=== PATIENT | male | born 1990 | race Caucasian/White ===

== ENCOUNTER 2018-09-25 01:17 | Inpatient (IN) | payer OTHER ==
[~2018-09-25] VITALS: Ht 170.2 cm; Wt 74.8 kg
[2018-09-25 01:30] VITALS: BP_SYST 156
[2018-09-25] MEDS ORDERED: NACL 0.9% 1,000 ML IV ONE (01:31)
[2018-09-25] MEDS ORDERED: FAMOTIDINE PF 20 MG/2 ML VIAL IVP ONE (01:45)
[2018-09-25] MEDS ORDERED: MORPHINE 4 MG/ML INJ. SYRINGE IVP ONE (01:45)
[2018-09-25] MEDS ORDERED: ONDANSETRON HCL 4 MG/2 ML VIAL IVP ONE ×2 (01:45→03:15)
[2018-09-25 01:54] LABS: HEMATOCRIT 46.5 % (36-54); HEMOGLOBIN 16.1 g/dL (14.0-18.0); MEAN CORPUSCULAR HEMOGLOBIN 30 pg (27-31); MEAN CORPUSCULAR HGB CONC 35 % (32-36); MEAN CORPUSCULAR VOLUME 87 fL (79.0-98.0); RED BLOOD CELL COUNT(AUTO) 5.33 MIL/uL (4.2-6.2); RED CELL DISTRIBUTION WIDTH 14.2 % (9.0-15.0); WHITE BLOOD COUNT (AUTO) 9.6 K/uL (4.8-10.8)
[2018-09-25 01:55] LABS: BASOPHILS # (AUTO) 0.1 K/uL (0.0-0.2); BASOPHILS % (AUTO) 1.1 % (0.0-2.0); EOSINOPHILS # (AUTO) 0.1 K/uL (0.0-0.4); EOSINOPHILS % (AUTO) 1.3 % (0.0-4.0); LYMPHOCYTES # (AUTO) 3.9 K/uL (1.0-5.5); LYMPHOCYTES % (AUTO) 40.7 % (20.5-51.5); MONOCYTES # (AUTO) 0.7 K/uL (0.0-1.0); NEUTROPHILS # (AUTO) 4.8 K/uL (1.8-7.7); NEUTROPHILS % (AUTO) 49.9 % (40.0-70.0); PLATELET COUNT (AUTO) 268 K/uL (130-430)
[2018-09-25 03:05] LABS: CALCIUM 8.8 mg/dL (8.4-11.0); CREATININE 1.04 mg/dL (0.55-1.30); POTASSIUM 3.5 mmol/L (3.5-5.1)
[2018-09-25 03:10] LABS: ALBUMIN 3.8 g/dL (3.4-4.8); TOTAL BILIRUBIN 0.4 mg/dL (0.0-1.0)
[2018-09-25] MEDS ORDERED: METOCLOPRAMIDE HCL 10 MG/2 ML VIAL IVP ONE (03:15)
[2018-09-25] MEDS ORDERED: PROCHLORPERAZINE EDISYLATE 10 MG/2 ML VIAL IVP ONE (03:45)
[2018-09-25 06:02] LABS: BILIRUBIN,URINE NEGATIVE (NEGATIVE); BLOOD, URINE NEGATIVE (NEGATIVE); CLARITY/URINE CLEAR (CLEAR); COLOR,URINE YELLOW (YELLOW); GLUCOSE,URINE NEGATIVE (NEGATIVE); KETONES,URINE 2+ (NEGATIVE); LEUKOCYTE ESTERASE ,URINE NEGATIVE (NEGATIVE); NITRITE, URINE NEGATIVE (NEGATIVE); PROTEIN URINE NEGATIVE (NEGATIVE); UROBILINOGEN,URINE 0.2 (0.2-1.0)
[2018-09-25] MEDS ORDERED: MORPHINE 4 MG/ML INJ. SYRINGE IVP PRN (06:30)
[2018-09-25 06:50] VITALS: BP_SYST 133
[2018-09-25] MEDS: NACL 0.9% 1,000 ML IV SCH ×3 (07:08→19:59)
[2018-09-25 08:00] VITALS: BP_SYST 121
[2018-09-25] MEDS ORDERED: ONDANSETRON HCL 4 MG/2 ML VIAL IVP PRN (09:30)
[2018-09-25] MEDS ORDERED: ONDANSETRON HCL 4 MG/2 ML VIAL ONE (09:44)
[2018-09-25] MEDS: MORPHINE 4 MG/ML INJ. SYRINGE IVP PRN ×4 (12:29→23:58)
[2018-09-25 15:16] VITALS: BP_SYST 123
[2018-09-25 19:20] VITALS: BP_SYST 128
[2018-09-25 23:35] VITALS: BP_SYST 132
[2018-09-26] MEDS: MORPHINE 4 MG/ML INJ. SYRINGE IVP PRN (05:13)
[2018-09-26] MEDS: NACL 0.9% 1,000 ML IV SCH (05:14)
[2018-09-26 06:35] LABS: CALCIUM 8.1 mg/dL (8.4-11.0); CREATININE 0.86 mg/dL (0.55-1.30); POTASSIUM 3.4 mmol/L (3.5-5.1)
[2018-09-26 06:43] LABS: ALBUMIN 2.9 g/dL (3.4-4.8); TOTAL BILIRUBIN 0.6 mg/dL (0.0-1.0)
[2018-09-26 07:28] LABS: EOSINOPHILS % (AUTO) 1.1 % (0.0-4.0); HEMATOCRIT 40.3 % (36-54); HEMOGLOBIN 13.6 g/dL (14.0-18.0); LYMPHOCYTES % (AUTO) 33.6 % (20.5-51.5); MEAN CORPUSCULAR HEMOGLOBIN 30 pg (27-31); MEAN CORPUSCULAR HGB CONC 34 % (32-36); MEAN CORPUSCULAR VOLUME 88 fL (79.0-98.0); MONOCYTES % (AUTO) 7.6 % (1.7-9.3); NEUTROPHILS % (AUTO) 56.8 % (40.0-70.0); PLATELET COUNT (AUTO) 227 K/uL (130-430); RED BLOOD CELL COUNT(AUTO) 4.59 MIL/uL (4.2-6.2); WHITE BLOOD COUNT (AUTO) 7.2 K/uL (4.8-10.8)
[2018-09-26 07:29] LABS: BASOPHILS # (AUTO) 0.1 K/uL (0.0-0.2); BASOPHILS % (AUTO) 0.9 % (0.0-2.0); EOSINOPHILS # (AUTO) 0.1 K/uL (0.0-0.4); LYMPHOCYTES # (AUTO) 2.4 K/uL (1.0-5.5); MONOCYTES # (AUTO) 0.5 K/uL (0.0-1.0); NEUTROPHILS # (AUTO) 4.1 K/uL (1.8-7.7)
[2018-09-26 08:00] VITALS: BP_SYST 135
== END 2018-09-26 09:55 | disposition left against medical advice (07) | DRG 440 ==
LOC: SED 01:17 → SMU 06:25
PROVIDERS: ADMIT Internal Medicine; ATTEND Internal Medicine
DX: K85.90 Acute pancreatitis without necrosis or infection, unspecified (principal)
CPT/HCPCS: 36415; 80053; 81003; 83690-TC; 85025; 87081; 96374; 96375; 96376; 99285; J0780; J2270; J2405; J2765; J3490; J7030

== ENCOUNTER 2018-11-05 06:53 | Emergency (ER) | payer OTHER ==
[~2018-11-05] VITALS: Ht 167.6 cm; Wt 65.8 kg
[2018-11-05 07:04] VITALS: BP_SYST 142
[2018-11-05 07:25] VITALS: BP_SYST 142
--- NOTE | 2018-11-05 07:25 | NUR ---
Patient eloped. Stated he was going to the lobby and exited hospital
== END 2018-11-05 07:25 | disposition left against medical advice (07) ==
LOC: SED 06:53
DX: R10.32 Left lower quadrant pain (principal); Z53.21 Procedure and treatment not carried out due to patient leaving prior to being seen by health care provider

== ENCOUNTER 2019-04-01 16:13 | Emergency (ER) | payer MEDICAID, OTHER ==
[~2019-04-01] VITALS: Ht 167.6 cm; Wt 74.8 kg
[2019-04-01 16:13] VITALS: BP_SYST 134
--- NOTE | 2019-04-01 16:13 | NUR ---
BROUGHT BACK TO BED #6 AND TRIAGED. REPORT GIVEN TO GARRETT
--- NOTE | 2019-04-01 16:15 | NUR ---
PT C/O N/V . PT H/O CYCLIC VOMITING.
--- NOTE | 2019-04-01 16:20 | NUR ---
ER Feliz Triplett at bedside examining patient.
[2019-04-01] MEDS ORDERED: KETOROLAC TROMETHAMINE 30 MG VIAL IVP ONE (16:30)
[2019-04-01] MEDS ORDERED: ONDANSETRON 4 MG ODT TAB PO ONE (16:30)
[2019-04-01] MEDS ORDERED: KETOROLAC TROMETHAMINE 60 MG/2 ML VIAL IM ONE (16:30)
--- NOTE | 2019-04-01 16:35 | NUR ---
PT MEDICATED FOR FOR PAIN TOLERATED WELL.
--- NOTE | 2019-04-01 16:40 | NUR ---
PT ADVISED NOT TO DRINK FROM SINK IN ROOM,PT VOMITS DRINKING WATER.
[2019-04-01] MEDS ORDERED: ONDANSETRON HCL 4 MG/2 ML VIAL IVP ONE (16:45)
[2019-04-01] MEDS ORDERED: NACL 0.9% 2,000 ML IV ONE (16:45)
[2019-04-01 17:07] VITALS: BP_SYST 134
== END 2019-04-01 17:07 | disposition left against medical advice (07) ==
LOC: SED 16:13
DX: R10.9 Unspecified abdominal pain (principal); R11.10 Vomiting, unspecified
CPT/HCPCS: 96372; 99283; J1885; Q0162

== ENCOUNTER 2020-05-14 21:38 | Emergency (ER) | payer MEDICAID, OTHER ==
[~2020-05-14] VITALS: Ht 170.2 cm; Wt 59.0 kg
[2020-05-14 21:45] VITALS: BP_SYST 146
--- NOTE | 2020-05-14 21:48 | NUR ---
Patient to ER bed 03 to gown for evaluation. Side rails up.
[2020-05-14] MEDS ORDERED: ONDANSETRON HCL 4 MG/2 ML VIAL IVP ONE (22:00)
[2020-05-14] MEDS ORDERED: MORPHINE 4 MG/ML INJ. SYRINGE IVP ONE (22:00)
[2020-05-14] MEDS ORDERED: DIPHENHYDRAMINE INJ 50 MG/ML VIAL IVP ONE (22:00)
[2020-05-14] MEDS ORDERED: NACL 0.9% 1,000 ML IV ONE (22:00)
--- NOTE | 2020-05-14 22:09 | NUR ---
bedside for pt eval and procedure, well tolerated
--- NOTE | 2020-05-14 22:10 | NUR ---
Pt BIB family to ED C/O bilateral eye pain today. 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 2 hours later, he reports onset of pain, described as "gravel" in his eyes, rated 9/10 in severity. No fevers, chills, cough, chest pain, shortness of breath, abdominal pain, nausea, vomiting, diarrhea, dizziness, lightheadedness, or other medical complaints at this time
--- NOTE | 2020-05-14 22:21 | NUR ---
Visual Testing completed, well tolerated
[2020-05-14] MEDS ORDERED: HYDROcodone/ACETAMIN 5-325 MG TAB (NORCO/ VICODIN) PO ONE (22:30)
[2020-05-14 23:00] VITALS: BP_SYST 138
--- NOTE | 2020-05-14 23:00 | NUR ---
Patient given written and verbal discharge instructions and verbalizes understanding. ER MD discussed with patient the results and treatment provided. Patient in stable condition. ID arm band removed. Rx of Tylenol #3 and Cyclopentolate given. Patient educated on pain management and to follow up with PMD. Pain Scale 0/10 Opportunity for questions provided and answered. Medication side effect fact sheet provided.
== END 2020-05-14 23:00 | disposition home or self-care (01) ==
LOC: SED 21:38
DX: H16.8 Other keratitis (principal)
CPT/HCPCS: 99283